=== PATIENT | male | born 1995 | race Caucasian/White ===

== ENCOUNTER 2017-01-14 05:43 | Inpatient (IN) | payer OTHER ==
[~2017-01-14] VITALS: Ht 177.8 cm; Wt 129.8 kg
[~2017-01-14 05:43] MED LIST: ALBUTEROL SULF8.5 GM IH; PREDNISONE20 MG PO; TESSALON PERLE100 MG PO; ZITHROMAX250 MG PO
[2017-01-14 06:38] LABS: HEMATOCRIT 44.8 % (38.0-50.0); MCH 28.2 PG (29.0-34.0); MCV 85.3 FL (86-99); RBC DIS.WIDTH-SD 37.2 % (39-53); RED BLOOD COUNT 5.25 M/uL (4.00-5.50)
[2017-01-14 07:22] LABS: AMPHETAMINE NEGATIVE (500 ng/mL); BARBITURATES NEGATIVE (200 ng/mL); BENZODIAZEPINES NEGATIVE (150 ng/mL); COCAINE NEGATIVE (150 ng/mL); INTERNAL CONTROLS VALID? YES; METHADONE NEGATIVE (200 ng/mL); METHAMPHETAMINE NEGATIVE (500 ng/mL); OPIATES (MORPHINE) NEGATIVE (100 ng/mL); OXYCODONE NEGATIVE (100 ng/mL); PHENCYCLIDINE NEGATIVE (25 ng/mL); PROPOXYPHENE NEGATIVE (300 ng/mL); THC CANNABINOIDS NEGATIVE (50 ng/mL); TRICYCLIC ANTIDEPRESSANTS NEGATIVE (300 ng/mL)
[2017-01-14 08:01] LABS: MEAN PLAT.VOLUME 11.8 uM^3 (9.0-12.4); PLAT.SUFFICIENCY ADEQUATE; PLATELET COUNT 225 K/uL (156-360)
[2017-01-14 08:04] LABS: ANION GAP 10 MEQ/L (2-14); CHLORIDE 105 MEQ/L (99-109); GFR ESTIMATE (CALCULATED) > 59 mL/min/; GLUCOSE 112 mg/dL (70-99); POTASSIUM 4.1 MEQ/L (3.7-5.4); SAMPLE HEMOLYSIS CHECK 0; SAMPLE ICTERIC CHECK 0; SAMPLE LIPEMIA CHECK 0; SERUM ETHYL ALCOHOL < 10 mg/dL; SODIUM 140 MEQ/L (136-147); UREA NITROGEN (BUN) 18 mg/dL (9-23)
[2017-01-14 09:59] VITALS: BP 135/84
[2017-01-14 15:34] VITALS: BP 103/81
[2017-01-15 07:25] VITALS: BP 160/76
[2017-01-15 14:57] VITALS: BP 152/96
[2017-01-15 19:46] VITALS: BP 151/74
[2017-01-16 07:22] VITALS: BP 143/77
[2017-01-16 16:12] VITALS: BP 144/73
[2017-01-17 07:42] VITALS: BP 130/73
[2017-01-17 15:22] VITALS: BP 146/65
[2017-01-18 07:53] VITALS: BP 132/83
[2017-01-18 15:15] VITALS: BP 112/58
[2017-01-19 07:36] VITALS: BP 126/86
[2017-01-19 15:27] VITALS: BP 125/76
[2017-01-20 07:41] VITALS: BP 144/69
[2017-01-20] MEDS ORDERED: RISPERDAL3 MG PO (10:03)
[2017-01-20 11:56] VITALS: BP 146/100
== END 2017-01-20 12:53 | disposition home or self-care (01) | DRG 885 ==
LOC: EME 05:43 → EDOF 09:16 → 1WEST 09:16
PROVIDERS: Emergency Medicine
DX: F20.0 Paranoid schizophrenia (principal); Z56.0 Unemployment, unspecified; E66.9 Obesity, unspecified; Z68.41 Body mass index [BMI] 40.0-44.9, adult; R45.1 Restlessness and agitation
CPT/HCPCS: 80048; 84443; 85027; 90837; 97150 GO; 97165 GO; 99281; 99285; G0480

== ENCOUNTER 2018-03-31 16:12 | Emergency (ER) | payer OTHER ==
[~2018-03-31] VITALS: Ht 177.8 cm; Wt 142.3 kg
[~2018-03-31 16:12] MED LIST changes: +RISPERDAL3 MG PO
[2018-03-31 17:00] LABS: MCH 27.7 PG (29.0-34.0); MCHC 33.3 G/DL (30.0-36.0); MCV 83.2 FL (86-99); PLATELET COUNT 217 K/uL (156-360); RBC DIS.WIDTH-CV 12.6 % (11.8-14.6); RBC DIS.WIDTH-SD 38.1 % (39-53); RED BLOOD COUNT 5.05 M/uL (4.00-5.50)
[2018-03-31 17:12] LABS: ALBUMIN 4.3 g/dL (3.2-4.8); CHLORIDE 104 mEq/L (99-109); POTASSIUM 3.8 mEq/L (3.7-5.4); SODIUM 140 mEq/L (136-147)
[2018-03-31 17:14] LABS: GLUCOSE 106 mg/dL (70-99); TOTAL PROTEIN 7.2 g/dL (6.4-8.3)
[2018-03-31 17:16] LABS: TOTAL BILIRUBIN 0.4 mg/dL (0.0-1.0)
[2018-03-31 17:18] LABS: ALKALINE PHOSPHATASE 90 IU/L (3-129); CREATININE 0.8 mg/dL (0.6-1.3); GFR ESTIMATE (CALCULATED) > 59 mL/min/ (58.99-99999)
[2018-03-31 17:19] LABS: UREA NITROGEN (BUN) 8 mg/dL (9-23)
[2018-03-31 17:20] LABS: AST (GOT) 24 IU/L (2-34)
[2018-03-31 17:21] LABS: ALT (GPT) 50 IU/L (3-49)
[2018-03-31 18:02] LABS: APPEARANCE SL.HAZY ((CLEAR)); BILIRUBIN NEGATIVE; BLOOD LARGE; COLOR YELLOW ((YELLOW)); GLUCOSE (STRIP) NEGATIVE; KETONES NEGATIVE; LEUKOCYTES NEGATIVE; NITRITE NEGATIVE; PROTEIN (STRIP) 30; UROBILINOGEN 0.2 MG/DL (0.2-1.0)
[2018-03-31 18:07] LABS: BACTERIA RARE /HPF; EPITHELIAL CELLS RARE /HPF; MUCUS 1+ /LPF; RED BLOOD CELLS TNTC /HPF (0-5)
[2018-03-31] MEDS ORDERED: FLOMAX0.4 MG PO (19:01)
[2018-03-31] MEDS ORDERED: NORCO 5/3251 TABLET PO (19:01)
[2018-03-31] MEDS ORDERED: ZOFRAN ODT8 MG PO (19:01)
[2018-03-31 19:18] VITALS: BP 138/88
== END 2018-03-31 19:18 | disposition home or self-care (01) ==
LOC: EME 16:12
PROVIDERS: Physician Assistant
DX: N20.0 Calculus of kidney (principal); F17.200 Nicotine dependence, unspecified, uncomplicated
CPT/HCPCS: 74176; 80053; 81003; 85027; 99281; 99284; J1885